=== PATIENT | female | born 1935 | race Two or more races ===

== ENCOUNTER 2019-08-02 14:10 | Inpatient (IN) | payer MEDICARE, BC ==
[~2019-08-02] VITALS: Ht 162.6 cm; Wt 56.7 kg
--- NOTE | 2019-08-02 15:30 | NUR ---
RECEIVED TO UNIT IN NO ACUTE DISTRESS. ORIENTED TO ROOM AND SURROUNDINGS. VSS. AWARE
[2019-08-02] MEDS ORDERED: ALPRAZOLAM 0.25 MG TABLET PO PRN (17:00)
[2019-08-02] MEDS ORDERED: ACETAMINOPHEN ES 500 MG TABLET PO PRN (17:00)
[2019-08-02 20:47] VITALS: BP 117/49
[2019-08-02] MEDS ORDERED: Medication Not On Formulary EA (Mirtazapine 7.5 MG) PO SCH (21:00)
--- NOTE | 2019-08-02 22:02 | NUR ---
RECEIVED PATIENT IN BED, ALERT AND VERBALLY RESPONSIVE. PATIENT ABLE TO AMBULATE AND CAN MAKE NEEDS KNOWN. DENIES PAIN AT THIS TIME. KEPT PATIENT WARM, DRY, AND COMFORTABLE. FALL AND SAFETY PRECAUTIONS OBSERVED. WILL CONTINUE TO MONITOR PATIENT AND ANTICIPATE AND ATTEND TO NEEDS.
[2019-08-03 06:00] VITALS: BP 143/51
--- NOTE | 2019-08-03 06:24 | NUR ---
PATIENT IS IN BED, ALERT AND VERBALLY RESPONSIVE. AFEBRILE. NO RESPIRATORY DISTRESS. NO COMPLAINTS OF PAIN. NO COMPLAINTS OF CHEST PAIN OR LEFT UPPER EXTREMITY PAIN. LEFT UPPER EXTREMITY OBSERVED WITH WEAKNESS. ASSISTED TO PLACE SLING ON LEFT UPPER EXTREMITY PER PATIENT REQUEST. LEFT UPPER CHEST WITH DRY AND INTACT DRESSING FOR S/P PACEMAKER PLACEMENT. NO S/S COMPLICATIONS OBSERVED. FALL AND SAFETY PRECAUTIONS OBSERVED. ALL NEEDS ATTENDED.
--- NOTE | 2019-08-03 08:00 | NUR ---
received pt. awake alert sitting up in wheel chair. pt. states she has intermittent pain in her left upper extremity but pain is not consistent requesting Tylenol. will provide pt. with PRN tylenol. pt. denies sob/ difficulty breathing. all needs met. safety measures in place. call light within reach. will continue to monitor pt.
[2019-08-03] MEDS: ACETAMINOPHEN 325 MG TABLET PO PRN ×2 (08:20→20:10)
[2019-08-03] MEDS: ASPIRIN EC 81 MG TABLET.DR PO SCH (08:20)
[2019-08-03] MEDS: FUROSEMIDE 20 MG TABLET PO SCH (08:20)
[2019-08-03 12:00] VITALS: BP 121/45
[2019-08-03 16:00] VITALS: BP 147/80
[2019-08-03 20:26] VITALS: BP 125/55
[2019-08-03] MEDS: MIRTAZAPINE 15 MG TABLET PO SCH (21:06)
--- NOTE | 2019-08-03 21:30 | NUR ---
Received pt sitting in the wheelchair. AAO x4. No acute distress noted. C/o intermittent mild pain on left arm s/p pacemaker placement and requested for Tylenol. Pain does not radiate anywhere else. Medicated for pain and other due med given as ordered. Arm sling in place. Pt assisted back to bed safely. Safety measures maintained. Call light and personal items within reach. Will continue to monitor.
[2019-08-04 04:24] VITALS: BP 143/65
[2019-08-04 05:35] LABS: BASOPHILS # (AUTO) 0.1 K/uL (0.0-8.0); BASOPHILS % (AUTO) 0.8 % (0.0-2.0); EOSINOPHILS # (AUTO) 0.4 K/uL (0.0-0.7); EOSINOPHILS % (AUTO) 6.1 % (0.0-7.0); HEMATOCRIT 25.5 % (31.2-41.9); HEMOGLOBIN 8.9 g/dL (10.9-14.3); LYMPHOCYTES # (AUTO) 1.3 K/uL (20.0-40.0); LYMPHOCYTES % (AUTO) 20.3 % (20.5-51.5); MEAN CORPUSCULAR HEMOGLOBIN 32.6 uug (24.7-32.8); MEAN CORPUSCULAR HGB CONC 35 g/dL (32.3-35.6); MEAN CORPUSCULAR VOLUME 93.7 fL (75.5-95.3); MONOCYTES # (AUTO) 0.8 K/uL (2.0-10.0); MONOCYTES % (AUTO) 12.4 % (0.0-11.0); NEUTROPHILS # (AUTO) 3.9 K/uL (1.8-8.9); NEUTROPHILS % (AUTO) 60.4 % (38.5-71.5); PLATELET COUNT (AUTO) 289 K/uL (179-408); RED BLOOD CELL COUNT(AUTO) 2.72 MIL/uL (3.63-4.92); WHITE BLOOD COUNT (AUTO) 6.5 K/uL (3.8-11.8)
[2019-08-04 06:13] LABS: THYROID STIMULATING HORMONE 1.438 mIU/mL (0.358-3.740)
[2019-08-04 06:32] LABS: BILIRUBIN,TOTAL 0.4 mg/dL (0.2-1.0); MAGNESIUM 2.1 mg/dL (1.8-2.4); PHOSPHOROUS 3.8 mg/dL (2.5-4.9); POTASSIUM 3.6 mmol/L (3.5-5.1); TOTAL PROTEIN, SERUM 5.7 g/dL (6.4-8.2)
[2019-08-04 06:37] LABS: CREATININE 0.6 mg/dL (0.6-1.3)
[2019-08-04] MEDS: FUROSEMIDE 20 MG TABLET PO SCH (08:00)
[2019-08-04] MEDS: ASPIRIN EC 81 MG TABLET.DR PO SCH (08:00)
[2019-08-04 11:20] VITALS: BP 121/40
[2019-08-04 15:22] VITALS: BP 127/43
--- NOTE | 2019-08-04 20:00 | NUR ---
Received patient in bed resting. Patient is alert and oriented times 4, verbally responsive. No signs and symptoms of acute distress, SOB, no complaints of chest pain or left upper extremity pain. Left upper chest dressing is dry and intact for S/P pacemaker placement. Sling is on left upper arm. Patient is comfortable, all needs attended to and all items within patient reach. All safety measure in place and call light within reach. Will continue to monitor.
[2019-08-04 20:55] VITALS: BP 118/50
[2019-08-04] MEDS: MIRTAZAPINE 15 MG TABLET PO SCH (21:54)
[2019-08-05] VITALS: BP 122/65
[2019-08-05 06:53] VITALS: BP 115/78
--- NOTE | 2019-08-05 07:37 | NUR ---
End shift note: No acute distress noted. patient slept well throughout the night. Arm sling in place. Patient had no complaints of pain, no request for pain medication. Due medication given as ordered. Al;l needs attended. Safety measures maintained. Call light and personal items within reach. Will endorse report to AM shift.
[2019-08-05 08:00] VITALS: BP 115/51
[2019-08-05] MEDS: ASPIRIN EC 81 MG TABLET.DR PO SCH (08:23)
[2019-08-05] MEDS: FUROSEMIDE 20 MG TABLET PO SCH (08:23)
[2019-08-05 11:34] VITALS: BP 134/48
[2019-08-05 15:45] VITALS: BP 118/52
--- NOTE | 2019-08-05 15:52 | NUR ---
INDIVIDUALIZED PLAN OF CARE
--- NOTE | 2019-08-05 20:00 | NUR ---
Received patient sitting in wheelchair watching TV. Alert and [place] x4. Patient is able to express all needs. No signs and symptoms of acute distress, no SOB and denies any pain or discomfort. She is a pleasant, sweet lady and very cooperative. Safety and comfort measures in place and all items are within patient reach. Will continue to monitor.
[2019-08-05 20:10] VITALS: BP 128/45
[2019-08-05] MEDS: MIRTAZAPINE 15 MG TABLET PO SCH (21:57)
[2019-08-06 05:30] VITALS: BP 147/56
--- NOTE | 2019-08-06 06:19 | NUR ---
End shift note: Patient slept well through the night. Alert and oriented times 4. On room air, No acute distress noted, no SOB, denied any pain. Arm sling in place. Patient had no complaints of pain, no request for pain medication. Due medication given as ordered. All needs attended to promptly. Safety measures maintained. Call light and personal items within reach. Will endorse report to AM shift.
[2019-08-06 08:00] VITALS: BP 142/59
[2019-08-06] MEDS: ASPIRIN EC 81 MG TABLET.DR PO SCH (08:35)
[2019-08-06] MEDS: FUROSEMIDE 20 MG TABLET PO SCH (08:36)
[2019-08-06] MEDS: ACETAMINOPHEN 325 MG TABLET PO PRN (11:53)
--- NOTE | 2019-08-06 13:53 | NUR ---
INTERDISCIPLINARY TEAM CONFERENCE
--- NOTE | 2019-08-06 15:42 | NUR ---
PATIENT IS ALERT, ORIENTED X4, NO SOB, RESP EVEN NONLABORED,SKIN WARM AND DRY TO TOUCH, NO DISTRESS NOTED, SUPERVISION WITH ADLS, PAIN IS MANAGED WITH MEDICATION ORDERED
[2019-08-06 20:15] VITALS: BP 115/58
[2019-08-06] MEDS: MIRTAZAPINE 15 MG TABLET PO SCH (20:56)
--- NOTE | 2019-08-07 01:48 | NUR ---
OOB in chair upon initial rounds. AAOx4 VSS Needs attended. Voiding well in the BR with supervision. Denies any pain nor any discomfort. Kept comfortable. Fall precautions maintained. Tolerated po meds well. Slept well most of the shift.VSS.
[2019-08-07 05:09] VITALS: BP 153/65
--- NOTE | 2019-08-07 06:45 | NUR ---
End of shift note: Slept well throughout the night. No acute distress noted. VSS. Kept comfortable. VSS. Denies any pain nor any discomfort.
--- NOTE | 2019-08-07 07:48 | NUR ---
Patient noted sitting up in wheelchair, complaints of dull pain in right shoulder from a previous surgery, patient states pain is reoccurring but refused tylenol at this time, no signs of distress noted, call light in reach, bed locked and in lowest position, all needs met at this time
[2019-08-07 08:00] VITALS: BP 129/57
[2019-08-07] MEDS: FUROSEMIDE 20 MG TABLET PO SCH (09:03)
[2019-08-07] MEDS: ASPIRIN EC 81 MG TABLET.DR PO SCH (09:03)
[2019-08-07 16:12] VITALS: BP 132/53
--- NOTE | 2019-08-07 19:20 | NUR ---
no changes this shift, endorsement given to night shift supervisor nurse
--- NOTE | 2019-08-07 19:58 | NUR ---
watching TV upon rounds. AAO x4 Making needs known. Kept comfortable. VSS. Continent of bowel and bladder. Will monitor patient. No complaints presented during shift.
[2019-08-07 20:45] VITALS: BP 115/46
[2019-08-07] MEDS: MIRTAZAPINE 15 MG TABLET PO SCH (20:51)
[2019-08-07] MEDS: PREGABALIN 25 MG CAPSULE PO SCH (21:26)
[2019-08-08] MEDS: ACETAMINOPHEN 325 MG TABLET PO PRN (01:33)
[2019-08-08] MEDS: PREGABALIN 25 MG CAPSULE PO SCH ×3 (05:31→21:12)
[2019-08-08 05:42] VITALS: BP 145/75
--- NOTE | 2019-08-08 06:42 | NUR ---
End of the shift note: Quiet night. Slept well. No acute distress noted. Needs attended. VSS. OOB to the BR with stand by assist. Voiding well. complained of headache, Tylenol given with relief noted. Tolerated Lyrica well. No side effects noted. Will monitor patient.
[2019-08-08] MEDS: FUROSEMIDE 20 MG TABLET PO SCH (09:06)
[2019-08-08] MEDS: ASPIRIN EC 81 MG TABLET.DR PO SCH (09:06)
[2019-08-08 11:39] VITALS: BP 100/50
[2019-08-08] MEDS ORDERED: TRAMADOL HCL 50 MG TABLET PO PRN (13:45)
[2019-08-08 15:23] VITALS: BP 136/55
[2019-08-08 20:12] VITALS: BP 110/45
[2019-08-08] MEDS: MIRTAZAPINE 15 MG TABLET PO SCH (21:13)
--- NOTE | 2019-08-08 21:44 | NUR ---
Received pt sitting on the chair at bedside and watching tv. AAO x4. No acute distress noted. Denies pain/ discomfort. Due meds given as ordered. Safety measures maintained. Call light and personal items within reach. Will continue to monitor.
[2019-08-09 04:12] VITALS: BP 148/58
[2019-08-09] MEDS: PREGABALIN 25 MG CAPSULE PO SCH ×3 (05:42→21:38)
[2019-08-09 08:00] VITALS: BP 138/48
[2019-08-09] MEDS ORDERED: METOPROLOL TARTRATE 25 MG TABLET PO SCH (09:30)
[2019-08-09] MEDS: ASPIRIN EC 81 MG TABLET.DR PO SCH (09:31)
[2019-08-09] MEDS: FUROSEMIDE 20 MG TABLET PO SCH (09:31)
[2019-08-09] MEDS: MULTIVITAMINS,THERAPEUTIC TABLET PO SCH (09:34)
[2019-08-09 16:52] VITALS: BP 106/36
[2019-08-09 20:00] VITALS: BP 114/39
[2019-08-09] MEDS: ATORVASTATIN 20 MG TABLET PO SCH (21:37)
[2019-08-09] MEDS: MIRTAZAPINE 15 MG TABLET PO SCH (21:38)
--- NOTE | 2019-08-10 01:06 | NUR ---
RECEIVED PATIENT IN BED, ALERT AND VERBALLY RESPONSIVE. AFEBRILE. NO RESPIRATORY DISTRESS. NO COMPLAINTS OF PAIN NOTED. PATIENT ABLE TO MAKE NEEDS KNOWN. RECEIVED ALL DUE MEDICATIONS, TOLERATED WELL. LEFT CHEST PACEMAKER SITE WITH NO S/S INFECTION OR BLEEDING. PATIENT IS SLEEPING AT THIS TIME, EASILY AROUSABLE. WILL CONTINUE TO MONITOR PATIENT. WILL CONTINUE TO OBSERVE FALL AND SAFETY PRECAUTIONS. WILL CONTINUE TO ATTEND AND ANTICIPATE NEEDS.
[2019-08-10 05:00] VITALS: BP 152/63
--- NOTE | 2019-08-10 05:37 | NUR ---
PATIENT ASLEEP AT THIS TIME, HAD LONG INTERVALS OF SLEEP DURING THE NIGHT. NO COMPLAINTS OF PAIN OR S/S FACIAL GRIMACING. ALL NEEDS ANTICIPATED AND ATTENDED. FALL AND SAFETY PRECAUTIONS OBSERVED.
[2019-08-10] MEDS: PREGABALIN 25 MG CAPSULE PO SCH ×2 (05:57→13:01)
[2019-08-10] MEDS: METOPROLOL SUCCINATE XL 25 MG TAB.SR.24H PO SCH (09:36)
[2019-08-10] MEDS: ASPIRIN EC 81 MG TABLET.DR PO SCH (09:36)
[2019-08-10] MEDS: MULTIVITAMINS,THERAPEUTIC TABLET PO SCH (09:36)
[2019-08-10 12:00] VITALS: BP 107/50
--- NOTE | 2019-08-10 12:51 | NUR ---
Patient seen and examined by Dr. Sepulveda. changed dressing on the surgical site of pacemaker placement. Surgical site is clean and dry, healing good, no noted signs of infection. No new order at this time.
--- NOTE | 2019-08-10 18:53 | NUR ---
Patient remains alert, oriented x 4, not in any form of distress, on room air. She denies any pain or discomfort at this time. Call light and frequently used items placed within patient's reach. Assisted with her needs promptly. Patient seen by Dr. Malin and Shweta Hahn ETCHER APPRENTICE during the shift with no new order. Patient participated with PT and OT and tolerated well. Will continue to monitor and will endorse accordingly to slot shift supervisor nurse.
--- NOTE | 2019-08-10 19:32 | NUR ---
Received an order from Dr. Malin to increase Lyrica to 50mg Q 8 hrs. order carried out.
--- NOTE | 2019-08-10 19:45 | NUR ---
Awake, alert, sitting on the chair at bedside. Very nice, pleasant woman. Denies any pain/discomforts at this time. safety measures and fall precaution maintained. Continue care as planned.
[2019-08-10 20:00] VITALS: BP 116/52
[2019-08-10] MEDS: ATORVASTATIN 20 MG TABLET PO SCH (20:56)
[2019-08-10] MEDS: MIRTAZAPINE 15 MG TABLET PO SCH (20:57)
[2019-08-10] MEDS: PREGABALIN 50 MG CAPSULE PO SCH (21:56)
[2019-08-10] MEDS ORDERED: PREGABALIN 25 MG CAPSULE PO SCH (22:00)
[2019-08-11 05:00] VITALS: BP 122/52
[2019-08-11] MEDS: PREGABALIN 50 MG CAPSULE PO SCH ×3 (05:12→21:29)
--- NOTE | 2019-08-11 06:12 | NUR ---
Shift End Report: VS stable. No complaint presented all night. No fall/injury reported. Ambulatory to the bathroom with hand held assist. All needs attended and met. Slept good. No significant event reported all night. Continue current rehab plan of care.
[2019-08-11 06:13] LABS: BASOPHILS # (AUTO) 0.1 K/uL (0.0-8.0); BASOPHILS % (AUTO) 0.9 % (0.0-2.0); EOSINOPHILS # (AUTO) 0.2 K/uL (0.0-0.7); EOSINOPHILS % (AUTO) 3.6 % (0.0-7.0); HEMOGLOBIN 10.1 g/dL (10.9-14.3); LYMPHOCYTES # (AUTO) 1.6 K/uL (20.0-40.0); MEAN CORPUSCULAR HEMOGLOBIN 34.6 uug (24.7-32.8); MEAN CORPUSCULAR HGB CONC 35 g/dL (32.3-35.6); MEAN CORPUSCULAR VOLUME 99.6 fL (75.5-95.3); MONOCYTES # (AUTO) 0.6 K/uL (2.0-10.0); MONOCYTES % (AUTO) 10.1 % (0.0-11.0); NEUTROPHILS # (AUTO) 3.6 K/uL (1.8-8.9); NEUTROPHILS % (AUTO) 59.4 % (38.5-71.5); PLATELET COUNT (AUTO) 350 K/uL (179-408); RED BLOOD CELL COUNT(AUTO) 2.92 MIL/uL (3.63-4.92)
[2019-08-11 08:00] VITALS: BP 115/41
[2019-08-11] MEDS: ASPIRIN EC 81 MG TABLET.DR PO SCH (08:50)
[2019-08-11] MEDS: METOPROLOL SUCCINATE XL 25 MG TAB.SR.24H PO SCH (08:53)
[2019-08-11] MEDS: MULTIVITAMINS,THERAPEUTIC TABLET PO SCH (09:16)
[2019-08-11 17:30] VITALS: BP 115/39
[2019-08-11] MEDS ORDERED: BISACODYL 10 MG SUPP.RECT RC PRN (20:00)
[2019-08-11] MEDS ORDERED: MAGNESIUM HYDROXIDE 30 ML LIQUID UDC PO PRN (20:00)
[2019-08-11] MEDS ORDERED: DOCUSATE SODIUM 100 MG CAPSULE PO SCH (21:00)
[2019-08-11 21:09] VITALS: BP 106/55
[2019-08-11] MEDS: MIRTAZAPINE 15 MG TABLET PO SCH (21:29)
[2019-08-11] MEDS: ATORVASTATIN 20 MG TABLET PO SCH (21:29)
--- NOTE | 2019-08-11 23:56 | NUR ---
aaox4 . OOB in chair watching TV upon initial rounds. No acute distress noted. Ambulates to the BR. Voiding freely. Will monitor patient. VSS. Denies any pain nor any discomfort. Tolerated po meds well. Compliant with care. Needs attended. Possible discharge tomorrow.
[2019-08-12 01:08] VITALS: BP 133/46
[2019-08-12 03:53] VITALS: BP 120/50
[2019-08-12] MEDS: PREGABALIN 50 MG CAPSULE PO SCH ×2 (05:58→14:01)
[2019-08-12 07:30] VITALS: BP 139/64
[2019-08-12] MEDS: ASPIRIN EC 81 MG TABLET.DR PO SCH (08:54)
[2019-08-12] MEDS: MULTIVITAMINS,THERAPEUTIC TABLET PO SCH (08:55)
[2019-08-12 09:56] VITALS: BP 139/64
[2019-08-12] MEDS: METOPROLOL SUCCINATE XL 25 MG TAB.SR.24H PO SCH (09:56)
--- NOTE | 2019-08-12 14:28 | NUR ---
Received patient alert and oriented x4 in stable condition. not in distress. Patient did last therapy this day. tolerated well. no complaint of pain/discomfort. Patient discharge to home with brother in private car around 210pm. Patient received medication list. Fax to pharmacy. Patient discharge instruction given. Lab test and procedures result given. Patient thankful for the care and service given to her. MD Malin notified. [facility] aware.
== END 2019-08-12 14:30 | disposition home health service (06) | DRG 281 ==
PROVIDERS: ADMIT Physical Medicine & Rehabilitation Pain Medicine; ATTEND Physical Medicine & Rehabilitation Pain Medicine
PROC: 4B02XSZ Measurement of Cardiac Pacemaker, External Approach (ICD-10-PCS; principal; 2019-08-11)
DX: I44.2 Atrioventricular block, complete (principal); I21.A1 Myocardial infarction type 2; J93.9 Pneumothorax, unspecified; I50.32 Chronic diastolic (congestive) heart failure; R53.1 Weakness; R20.2 Paresthesia of skin; G56.32 Lesion of radial nerve, left upper limb; Z95.0 Presence of cardiac pacemaker; I11.0 Hypertensive heart disease with heart failure; I25.10 Atherosclerotic heart disease of native coronary artery without angina pectoris; G47.00 Insomnia, unspecified; Z90.49 Acquired absence of other specified parts of digestive tract; D64.9 Anemia, unspecified; F32.9 Major depressive disorder, single episode, unspecified; M79.602 Pain in left arm; R53.81 Other malaise
CPT/HCPCS: 36415; 82652; 83735; 84100; 84443; 85025; 93307; A4663

== ENCOUNTER 2022-08-05 12:50 | Emergency (ER) | payer MEDICARE, BC ==
[~2022-08-05] VITALS: Ht 167.6 cm; Wt 59.9 kg
[~2022-08-05 12:50] MED LIST: ACET-73 PO; ALPR0.255 PO; ASPI-605 PO; DICL100G16 TP; FURO20TA4 PO; MIRT7.5T10 PO
[2022-08-05] MEDS ORDERED: MIRT-119 PO (13:03)
[2022-08-05] MEDS ORDERED: ATOR20TA PO (13:03)
[2022-08-05] MEDS ORDERED: TDAP DIPH,PERTUSS,TET VAC/PF 0.5 ML DISP.SYRIN IM ONE (14:03)
[2022-08-05] MEDS: TDAP DIPH,PERTUSS,TET VAC/PF 0.5 ML DISP.SYRIN IM ONE (14:08)
--- NOTE | 2022-08-05 14:15 | NUR ---
Pt has small (approx 4mm) lac on occiput. lac cleaned with saline and H2O2.
[2022-08-05] MEDS ORDERED: LIDOCAINE 1%-EPI 1:100,000 20 ML VIAL ONE (14:30)
--- NOTE | 2022-08-05 15:20 | NUR ---
Gave pt RX and d/c instructions, pt verbalized understanding.
== END 2022-08-05 15:15 | disposition home or self-care (01) ==
LOC: ER 12:50
DX: S01.01XA Laceration without foreign body of scalp, initial encounter (principal); R51.9 Headache, unspecified; Z95.0 Presence of cardiac pacemaker; Z79.82 Long term (current) use of aspirin; Z79.899 Other long term (current) drug therapy; W18.39XA Other fall on same level, initial encounter; Y93.89 Activity, other specified; Y92.89 Other specified places as the place of occurrence of the external cause; Y99.8 Other external cause status
CPT/HCPCS: 99285; 70450; 90715; 90471; 12002; J3490; A4663